=== PATIENT | male | born 1980 | race Caucasian/White ===

== ENCOUNTER 2022-07-06 14:43 | Emergency (ER) | payer OTHER, SELFPAY ==
[2022-07-06 14:58] VITALS: BP 115/77; PULSE 67; RESP 18; TEMP 36.8; O2SAT 99
--- NOTE | 2022-07-06 15:07 | ED.EAR ---
HPI - Ear Problem General Chief complaint: Ear Stated complaint: muffled hearing in both ears Time Seen by Provider: 07/06/22 15:08 Source: patient, RN notes reviewed and old records reviewed History of Present Illness HPI Narrative: 42-year-old male who presents to [facility] with complaints of muffled hearing in bilateral ears for one month duration, Patient reports that he has excessive wax in his ears and he has to have ears cleaned out every so often due to his wax build up. Patient denies any pain to ears MD Complaint: decreased hearing and other (excessive wax) Location: bilateral Discharge from ear: Reports no Treatment prior to arrival: none Related Data Home Medications Medication Instructions Recorded Confirmed bupropion HCl 150 mg 24 hr tablet, 150 mg PO DAILY 07/06/22 07/06/22 extended release omeprazole 20 mg capsule,delayed 20 mg PO DAILY 07/06/22 07/06/22 release Allergies Allergy/AdvReac Type Severity Reaction Status Date / Time No Known Allergies Allergy Verified 07/06/22 15:02 Review of Systems Review of Systems: CONSTITUTIONAL: Denies fever, chills, or sweats. EYES: Denies visual changes, redness, or discharge. ENT: Denies rhinorrhea, congestion, sore throat, positive for bilateral decrease in hearing CARDIOVASCULAR: Denies chest pain, palpitations, or edema. RESPIRATORY: Denies cough or dyspnea. GASTROINTESTINAL: Denies abdominal pain, nausea, vomiting, or diarrhea. GENITOURINARY: Denies dysuria or hematuria. SKIN: Denies rash or itching. MUSCULOSKELETAL: Denies back pain, joint pain, or myalgia. NEUROLOGIC: Denies headache, numbness, or weakness. PSYCHIATRIC: Positive for history of anxiety or depression.ADD All systems reviewed & are unremarkable except as noted in HPI and below [facility] Past Medical History Medical History (Updated 07/08/22 @ 22:05 by Susan May NP) ADD (attention deficit disorder) Excessive ear wax GERD (gastroesophageal reflux disease) Surgical History Surgical History (Updated 07/08/22 @ 21:51 by Susan May NP) History of repair of hiatal hernia [place] teeth extracted Social History Social History (Updated 07/08/22 @ 21:52 by Susan May NP) Smoking status: Never smoker Alcohol intake: current Alcohol use details: social Substance use type: does not use Living arrangements: with family Gender identity (if verbalized by the patient): Male Comments At time of signature, agree with nursing past medical, surgical, social and family history. There is no relevant family history pertinent to the presenting complaint Exam Narrative: GENERAL: Well-appearing, well-nourished, and in no acute distress. HEAD: Normocephalic, atraumatic. EYES: PERRLA and EOMI. ENT: Nares clear, no rhinorrhea or epistaxis. Mucous membranes moist.TM's completely occluded by wax after removal TM's normal with god light reflex, no canal irritation, throat pink with no redness or swelling NECK: Supple. no lymphadenopathy CHEST: Clear to auscultation. No respiratory distress.SAO2 99% on room air HEART: Regular rate and rhythm. No murmur heard. Normal peripheral pulses. ABDOMEN: Soft, nontender, nondistended, normal active bowel sounds. EXTREMITIES: Normal range of motion. No edema. SKIN: Warm, dry, no rash. NEURO: No focal deficits. Alert and oriented x3. Course Course Level of Care: Express Care Visit Vital Signs Vital signs: Vital Signs Temperature 36.8 C 07/06/22 14:58 Pulse Rate 67 07/06/22 14:58 Respiratory Rate 18 07/06/22 14:58 Blood Pressure 115/77 07/06/22 14:58 Pulse Oximetry 99 07/06/22 14:58 Oxygen Delivery Room Air 07/06/22 14:58 Temperature 36.8 C 07/06/22 14:58 Pulse Rate 67 07/06/22 14:58 Respiratory Rate 18 07/06/22 14:58 Blood Pressure 115/77 07/06/22 14:58 Pulse Oximetry 99 07/06/22 14:58 Oxygen Delivery Room Air 07/06/22 14:58 Procedures Ear Wax Removal Both Ears:
== END 2022-07-06 15:56 | disposition home or self-care (01) ==
PROVIDERS: Emergency Provider Registered Nurse
DX: H61.23 Impacted cerumen, bilateral (principal); K21.9 Gastro-esophageal reflux disease without esophagitis
CPT/HCPCS: 69210; 99202; A9270; G0463

== ENCOUNTER 2023-09-17 18:40 | Emergency (ER) | payer OTHER, SELFPAY ==
[2023-09-17 18:47] VITALS: BP 137/82; PULSE 91; RESP 18; TEMP 36.5; O2SAT 99
--- NOTE | 2023-09-17 18:49 | ED.GENADULT ---
HPI - General Adult General Chief complaint: Skin/Abscess/Foreign Body Stated complaint: Rash Lt Thigh Source: patient Mode of arrival: ambulatory Limitations: no limitations History of Present Illness HPI narrative: 43-year-old male presenting for complaint of red rash to the left outer thigh for 1 week. Denies significant change in the appearance since he first noticed it. Denies pain or oozing from the site. Endorses mild itch for which he is applying hydrocortisone cream. He took Benadryl last night. Denies lip, tongue, or throat swelling, shortness of breath or wheezing. Denies changes to soap, detergent, lotion, or any other exposures. No one else in the house or any contacts with similar symptoms. Related Data Home Medications Medication Instructions Recorded Confirmed bupropion HCl 150 mg 24 hr tablet, 150 mg PO DAILY 07/06/22 07/06/22 extended release omeprazole 20 mg capsule,delayed 20 mg PO DAILY 07/06/22 07/06/22 release Allergies Allergy/AdvReac Type Severity Reaction Status Date / Time No Known Allergies Allergy Verified 07/06/22 15:02 Review of Systems Review of Systems: CONSTITUTIONAL: Denies body aches, fever, chills, or sweats. EYES: Denies visual changes, redness, or discharge. ENT: Denies rhinorrhea, congestion CARDIOVASCULAR: Denies chest pain, palpitations, or edema. RESPIRATORY: Denies cough or dyspnea. GASTROINTESTINAL: Denies abdominal pain, nausea, vomiting, or diarrhea. SKIN: report rash left thigh MUSCULOSKELETAL: Denies back pain, joint pain, or myalgia. NEUROLOGIC: Denies headache, numbness, tingling, or weakness. [facility] Past Medical History Medical History ADD (attention deficit disorder) Excessive ear wax GERD (gastroesophageal reflux disease) Surgical History Surgical History History of repair of hiatal hernia [place] teeth extracted Social History Social History Smoking status: Never smoker Alcohol intake: current Alcohol use details: social Substance use type: does not use Living arrangements: with family Gender identity (if verbalized by the patient): Male Comments At time of signature, I have reviewed and agree with nursing past medical, surgical, social and family history unless otherwise noted. Please see nursing chart for further information. There is no relevant family history pertinent to the presenting complaint Exam Narrative: GENERAL: Well-appearing HEAD: Normocephalic, atraumatic. EYES: conjunctivae clear, and EOMI. ENT: Mucous membranes moist. Oropharynx without edema, erythema or lesions. NECK: Supple. No lymphadenopathy CHEST: Clear to auscultation. HEART: Regular rate and rhythm. SKIN: Warm, dry. Left upper lateral thigh with scattered erythematous vesicles, largest area approx 3cm diameter surrounded with scattered vesicular lesions, including linear pattern. Nontender, no drainage, no warmth fluctuance or induration. NEURO: Alert and oriented x3. Course Course Emergency Course: Patient is aware of diagnosis, understands and agrees to treatment plan. Anticipatory guidance given. Patient agrees to follow-up as directed and is aware of reasons to seek care at the emergency department. Portions of this record may have been created with voice recognition software Level of Care: Express Care Visit Vital Signs Vital signs: Vital Signs Temperature 97.7 F 09/17/23 18:47 Pulse Rate 91 09/17/23 18:47 Respiratory Rate 18 09/17/23 18:47 Blood Pressure 137/82 09/17/23 18:47 Pulse Oximetry 99 09/17/23 18:47 Oxygen Delivery Room Air 09/17/23 18:47 Temperature 97.7 F 09/17/23 18:47 Pulse Rate 91 09/17/23 18:47 Respiratory Rate 18 09/17/23 18:47 Blood Pressure 137/82 09/17/23 18:47 Pulse Oximetry 99 09/17/23
== END 2023-09-17 19:04 | disposition home or self-care (01) ==
PROVIDERS: Emergency Provider Nurse Practitioner Family; PCP Hospitalist
DX: L30.9 Dermatitis, unspecified (principal); K21.9 Gastro-esophageal reflux disease without esophagitis
CPT/HCPCS: 99213; G0463

== ENCOUNTER 2025-06-10 08:07 | Emergency (ER) | payer OTHER, SELFPAY ==
--- NOTE | 2025-06-10 08:08 | ED.EAR ---
HPI - Ear Problem General Chief complaint: Ear Stated complaint: Ears Time Seen by Provider: 06/10/25 08:17 Source: patient, RN notes reviewed and old records reviewed Mode of arrival: ambulatory Limitations: no limitations History of Present Illness HPI Narrative: 45-year-old male presents to the [facility] with decreased hearing, concern for earwax impaction. Has a history of ear wax impactions. Noticed this morning when he woke up that he has decreased hearing on the right Denies pain. Denies discharge. States that he tried using a Q-tip to get the wax out. Related Data Home Medications ?Medication ?Instructions ?Recorded ?Confirmed ?Last Taken ?Type bupropion HCl 150 mg 24 hr tablet, 150 mg PO DAILY 07/06/22 07/06/22 Unknown History extended release omeprazole 20 mg capsule,delayed 20 mg PO DAILY 07/06/22 07/06/22 Unknown History release Allergies Allergy/AdvReac Type Severity Reaction Status Date / Time No Known Allergies Allergy Verified 06/10/25 08:18 Review of Systems Review of Systems: All systems reviewed & are unremarkable except as noted in HPI and below Constitutional: Constitutional: Reports no additional constitutional complaints ENT: Reports as per HPI Musculoskeletal: Musculoskeletal: Reports no additional musculoskeletal complaints Integumentary/Breasts: Skin/Breast: Reports system reviewed and no additional complaints, except as docu PMFSH Past Medical History Medical History Excessive ear wax GERD (gastroesophageal reflux disease) ADD (attention deficit disorder) Surgical History Surgical History History of repair of hiatal hernia [place] teeth extracted Social History Social History Smoking status: Never smoker Alcohol intake: current Alcohol use details: social Substance use type: does not use Living arrangements: with family Gender identity (if verbalized by the patient): Male Comments At the time of my signature, I reviewed and agree with the nursing past medical, surgical, social, and family history. There is no relevant family history pertinent to the patient complaint. Exam Const: General: cooperative, healthy appearing, comfortable, no acute distress, well developed, alert and well nourished Nutritional Appearance: well nourished Orientation/consciousness: patient oriented x3 Limitations: no limitations HENMT: Head: normal to inspection Ears: hearing grossly normal bilaterally, external ears normal and Abnormal EAC present cerumen impaction on the right and excessive cerumen on the left; no erythema and no EA tenderness Mouth: Yes Normal oral and palatal mucosa present, Yes lip normal, Yes tongue normal and Yes moist mucous membranes Throat: posterior oropharynx normal, uvula midline and no uvular edema Eyes: General: appearance normal, both eyes and all related structures Alignment and Position: alignment normal Neck: Neck: normal visual inspection, full ROM, no lymphadenopathy and no meningeal signs Chest: Chest palpation & inspection: normal inspection of the chest Resp: Effort & Inspection: normal respiratory effort and able to speak in complete sentences Cardio: Rate: regular rate Skin: General skin exam: normal color and no rashes or lesions noted Neuro: General: patient oriented x3, gait normal, moves all extremities and no meningeal signs Cognition (Neuro): normal cognition Speech: normal speech Gait exam (Neuro): Normal gait present Extrem: General: normal to inspection, full ROM, capillary refill normal and normal gait Psych: Appearance: grossly normal and well kempt Mental Status: mental status grossly normal Speech and movement: Normal speech and movement present and Clear speech present Affect: normal affect Attitude: cooperative Course Course Level of Care: Express Care Visit Vital Signs Vital signs: Vital Signs Temperature 97.3 F L 06/10/25 08:14 Pulse Rate 68 06/10/25 08:14 Respiratory Rate 18 06/10/25 08:14 Blood Pressure 134/69 06/10/25 08:14 Pulse Oximetry 99 06/10/25 08:14 Oxygen Delivery Room Air 06/10/25 08:14 Temperature 97.3 F L 06/10/25 08:14 Pulse Rate 68 06/10/25 08:14 Respiratory Rate 18 06/10/25 08:14 Blood Pressure 134/69 06/10/25 08:14 Pulse Oximetry 99 06/10/25 08:14 Oxygen Delivery Room Air 06/10/25 08:14 Reviewed Procedures Ear Wax Removal Both Ears: Ear Wax Removal Date: 06/10/25 Ear Wax Removal Time: 08:23 Cerumenolytic Used: other (Peroxide water) Results: Re-examined: cerumen removed completely TM Examination: TM(s) intact, normal appearance Ear Canal Exam: atraumatic Patient Tolerated Procedure: well Medical Decision Making MDM Narrative Medical decision making narrative: Patient sitting comfortably in exam room. Nontoxic, vitals stable. Patient in no acute distress Patient presents to have his ears cleaned out specifically right side Patient has earwax, used peroxide and a curette for removal. Patient appropriate for outpatient treatment and follow-up Discharge instructions reviewed with patient, as well as provided in writing per nursing staff. The instructions also include specific and strict return/GO TO THE ER as well as f/u information. All questions have been answered, and the patient deny any further questions with discharge and discharge plan. Some parts of this dictation were generated by voice recognition software and may contain typographical and/or grammatical inaccuracies. Differential Diagnosis Differential Diagnosis: Ear wax impaction, excessive earwax, otitis externa, otitis media, otitis serous, tinnitus Medical Records Medical records reviewed: Yes I reviewed the external patient's medical records. Vital Signs Vital Signs: Vital Signs Temperature 97.3 F L 06/10/25 08:14 Pulse Rate 68 06/10/25 08:14 Respiratory Rate 18 06/10/25 08:14 Blood Pressure 134/69 06/10/25 08:14 Pulse Oximetry 99 06/10/25 08:14 Oxygen Delivery Room Air 06/10/25 08:14 Temperature 97.3 F L 06/10/25 08:14 Pulse Rate 68 06/10/25 08:14 Respiratory Rate 18 06/10/25 08:14 Blood Pressure 134/69 06/10/25 08:14 Pulse Oximetry 99 06/10/25 08:14 Oxygen Delivery Room Air 06/10/25 08:14 Reviewed Lab Data Lab results reviewed: Yes I reviewed the patient's lab results. Labs: Reviewed Critical Care Time Critical Care Time Critical Care Time: No Discharge Plan Discharge Clinical Impression: Impacted cerumen of right ear, Excessive cerumen in left ear canal Patient Disposition: Home Condition: Stable Instructions: Antibiotic Form, Carbamide Peroxide (Into the ear), How to Use Ear Drops (ED) Additional Instructions: You had Cerumen (EAR wax impaction). Do not use Q-tips or put anything in the ear. This can damage the ear. Instead , use Debrox or ear wax remover. Place 5 drops in ear after a hot shower and place a warm compress over the ear for 20 minutes. alternate doing this every 3-4 days. It will break up the wax gently. Do not use too much pressure. Once you have all of the cerumen out of your ears, you may do preventative treatment to prevent this from happening again. Use 5 drops once weekly after a hot shower. Patient Language: Greenlandic Prescriptions: No Action bupropion HCl 150 mg tablet extended release 24 hr 150 mg PO DAILY omeprazole [Prilosec] 20 mg Capsule,Delayed Release(Dr/Ec) 20 mg PO DAILY Follow-up/Referrals: Vonda,Dank Mack Jr., MD [Primary Care Provider] - [facility] Week [facility] Time of Disposition: 08:28
--- OUTSIDE RECORDS SUMMARY | 2025-06-10 08:10 | XMS_ITS | Clinical Summary ---
Author Organization [facility] Address [address] [place] [id number] Care Team Providers Care Technical Advisor Name Role Phone Vonda Phillips MD, Dank Mack Primary Care Provide r Allergies No known active allergies Medications vitamin D3-folic acid 500 unit- 1 mg tablet Take by mouth daily Active omeprazole (PriLOSEC) 20 mg capsuleIndicati ons:Gastroesoph ageal reflux disease without esophagitis TAKE 1 CAPSULE(20 MG) BY MOUTH DAILY 90 capsule 3 5 Active buPROPion XL (WELLBUTRIN XL) 300 mg 24 hr tabletIndicatio ns:Profound inattention TAKE 1 TABLET(300 MG) BY MOUTH EVERY MORNING 90 tablet 3 5 Active buPROPion XL (WELLBUTRIN XL) 300 mg 24 hr tabletIndicatio ns:Profound inattention Take 1 tablet (300 mg total) by mouth every morning 90 tablet 3 4 025 Discontinued omeprazole (PriLOSEC) 20 mg capsuleIndicati ons:Gastroesoph ageal reflux disease without esophagitis Take 1 capsule (20 mg total) by mouth daily 90 capsule 3 4 025 Discontinued Active Problems Problem Noted Date Diagnosed Date Profound inattention 04/30/2022 Assessment & Plan (06/19/2022 2:46 PM CDT): Increase wellbutrin to 150 mg XL daily- ordered rtc 4 weeks Assessment & Plan (04/30/2022 10:31 PM CDT): He is interested in starting nonstimulant medication. Many symptpoms he describes fulfill criteria for an ADD/ADHD diagnosis. I discussed I do not prescribe stimulants without a formal diagnosis from a pscyhologist and offered this referral to him. He is interested in nonstimulant options first, discussed effexor vs wellbutrin. Bc of its weight neutrality and lower se profile, we agreed wellbutrin would be a better first option. SE were discussed including dizziness, nausea, dry mouth. Annual physical exam 01/27/2021 Assessment & Plan (06/04/2024 8:09 AM CDT): Reviewed labs, screenings and vaccines Assessment & Plan (01/27/2021 3:33 PM CDT): - Reviewed with the patient BMI, blood pressure, diet, exercise, and encouraged healthy lifestyle choices. - Screened for high risk behaviors, diet and exercise habits, and symptoms of depression. - check screening labs - encouraged regular exercise and weight loss Pre-diabetes 01/27/2021 Assessment & Plan (01/27/2021 3:34 PM CDT): - hx of high glucose - check A1c Hyperlipidemia 01/27/2021 Assessment & Plan (04/30/2022 10:32 PM CDT): Eating lower cholesterol diet, LDL improved significantly- encouraged to continue this Assessment & Plan (10/11/2021 10:38 AM PHOTOGRAPHER'S MODEL): Checking flp Assessment & Plan (01/27/2021 3:34 PM CDT): - elevated lipids in past - will check lipids Class 1 obesity due to exces s calories without serious comorbidity with body mass index (BMI) of 33.0 to 33.9 in adult 01/27/2021 Assessment & Plan (06/04/2024 8:09 AM CDT): Monitor weight Assessment & Plan (02/05/2023 4:25 PM CDT): withGERD Monitor weight Assessment & Plan (10/11/2021 10:39 AM PHOTOGRAPHER'S MODEL): Checking tfts Will have further diet/excercise recs once labs return. Need to r/o dm and predm Assessment & Plan (01/27/2021 3:34 PM CDT): - discussed risks associated with obesity to include heart disease, hyperlipidemia, LEYDI, Diabetes, and OA. - recommend weight loss via diet and exercise Inguinal hernia, left 06/12/2018 Family history of prostate cancer 02/18/2018 Assessment & Plan (04/30/2022 10:31 PM CDT): Advise we start screening PSA at 43 if he is interested. This was discussed today. 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 His [place] Sleepiness Scale score is 11. I have recommended proceeding with a nocturnal polysomnogram with a split night protocol if necessary and no MSLT. He will follow-up with me in 3 months. Assessment & Plan (10/11/2021 10:39 AM PHOTOGRAPHER'S MODEL): Sleep study scheduled- agree with this Assessment & Plan (01/27/2021 3:33 PM CDT): - uncontrolled - ref to sleep medicine for sleep study Immunizations Immunization Administration Dates Next Due Influenza, Quadrivalent, Erika l Culture-based MDCK, Preservative Free, Antibiotic Free, Intramuscular 08/18/2022,08/22/2019 Influenza, Quadrivalent, Spl it, Preservative Free, Intramuscular 08/13/2020,08/20/2018,09/27/2017 Influenza, Trivalent, IM (MDV) ,08/31/2014,07/21/2013,08/19 Influenza, Trivalent, Preser vative Free, Intramuscular 08/26/2016,08/15/2016,08/26/2015,08/18,08/25/2014,07/21/2013,08/19/2012 Influenza, Unspecified 07/17/2023(Deferr ed: Patient Refused),08/04/2020,08/04/2019 Pfizer SARS-CoV-2 Monovalent Vaccination (12+ Yrs) PURPLE 01/20/2021,12/31/2020 Tdap 03/15/2017,05/17/2008 Surgical History Surgery Date Site/Laterality Comments HERNIA REPAIR Left Left inguinal hernia repair WISDOM TOOTH EXTRACTION UPPER GASTROINTESTINAL ENDOSCOPY Medical History Medical History Date Comments Hiatal hernia High cholesterol Anxiety Family History Medical History Relation Name Comments Prostate cancer Father Breast cancer Mother Relation Name Status Comments Father Alive Mother Alive Social History Tobacco Use Types Packs/Day Years Used Date Smoking Tobacco: Never Smokeless Tobacco: Never Tobacco Cessation:Counseling Given: Not Answered AUDIT-C Answer Date Recorded Q1: How often do you have a drink containing alc ohol? 2-4 times a month 12/17/2024 Q2: How many drinks containi ng alcohol do you have on a typical day when you are drinking? 1 or 2 12/17/2024 Q3: How often do you have si x or more drinks on one occasion? Never 12/17/2024 PHQ-2 Answer Date Recorded PHQ-2 Total Score (If total score is 3 or more points, staff should administer the PHQ-9) 0 06/04/2024 PHQ-9 Answer Date Recorded PHQ-9 Total Score 2 06/04/2024 Personal Safety Answer Date Recorded Have you ever been in or are you currently in a harmful physical or emotional relationship or is someone making you feel afraid or unsafe? Denies 12/17/2024 Sex and Gender Information Value Date Recorded Sex Assigned at Not on file Legal Sex Male 3:53 PM CDT Gender Identity Not on file Sexual Orientation Not on file Obstetrics History Last Filed Vital Signs Vital Sign Reading Time Taken Comments Blood Pressure 132/97 12/17/2024 8:15 AM PHOTOGRAPHER'S MODEL Pulse 71 12/17/2024 8:15 AM PHOTOGRAPHER'S MODEL Temperature 36.3 C (97.4 F) 12/17/2024 7:54 AM PHOTOGRAPHER'S MODEL Respiratory Rate 12 12/17/2024 8:15 AM PHOTOGRAPHER'S MODEL Oxygen Saturation 97% 12/17/2024 8:15 AM PHOTOGRAPHER'S MODEL Inhaled Oxygen Concentration - - Weight 90.7 kg (200 lb) 12/17/2024 6:39 AM PHOTOGRAPHER'S MODEL Height 167.6 cm (5' 6) 06/04/2024 7:44 AM CDT Body Mass Index 32.28 06/04/2024 7:44 AM CDT Plan of Treatment Health Maintenance Due Date Last Done Comments Hepatitis C Screening 1980 Hepatitis B Screening 1996 Covid-19 Vaccine ( season) 2024 08/18/2022, 09/26/2021, 01/20/2021, Additional history exists Depression Screening 06/04/2025 06/04/2024, 07/17/2023, 02/05/2023, Additional history exists Regular Well Visit/Exam 18-64 06/04/2025 06/04/2024, 02/05/2023, 01/27/2021 Influenza Vaccine (#1) 2025 , 09/06/2021, 08/13/2020, Additional history exists Prostate Cancer Screening-PSA 07/10/2026 07/10/2024 DTaP/Tdap/Td Vaccine (3 - Td or Tdap) 03/15/2027 03/15/2017, 05/17/2008 Colon Cancer Screening-Colonoscopy 12/17/2034 12/17/2024 Pneumococcal vaccine <65 Aged Out No longer eligible based on patient's age to complete this topic Procedures Procedure Name Priority Date/Time Associated Diagnosis Comments COLONOSCOPY 12/17/2024 7:12 AM PHOTOGRAPHER'S MODEL PSA SCREEN Routine 07/10/2024 8:21 AM CDT Family history of prostate cancer from Last 3 Months or Most Recently Relevant to Health Maintenance Results * Colonoscopy (12/17/2024 7:12 AM PHOTOGRAPHER'S MODEL) Anatomical Region Laterality Modality Other Narrative Procedure Note Iván Huang MD - 12/17/2024 7:12 AM CST [facility] GI ENDOSCOPY Patient Name: Timothy Florence Procedure Date: 12/17/2024 7:12 AM Date of : 1980 Admit Type: Outpatient Age: 44 Gender: Male Attending MD: Iván Santana MD Room: [facility] ENDOSCOPY ROOM 06 Note Status: Finalized Procedure: Colonoscopy Indications: Screening for colorectal malignant neoplasm Referring MD: Providers: Iván Huang MD Medicines: See the Anesthesia note for documentation of the administered medications Complications: No immediate complications. Estimated Blood Loss: Estimated blood loss: none. Procedure: The benefits, risks and alternatives of theprocedure and sedation were discussed and informed consentwas obtained. All questions were answered. Please referto the signed informed consent document in the medical record. The scope was passed under direct vision.The PCF-GC170A colonoscope was introduced through theanus and advanced to the terminal ileum, with identification of the appendiceal orifice and IC valve. The colonoscopy was performed without difficulty. The patient tolerated the procedurewell. The quality of the bowel preparation was good. Findings: The perianal and digital rectal examinations were normal. The terminal ileum appeared normal. The entire examined colon appeared normal on direct and retroflexion views. Impression: - The examined portion of the ileum was normal. - The entire examined colon is normal. - The entire examined colon is normal on direct and retroflexion views. - No specimens collected. Recommendation: - Repeat colonoscopy in 10 years for screening purposes. Iván Santana Iván Huang MD 12/17/2024 8:03:14 AM . Number of Addenda: 0 Note Initiated On: 12/17/2024 7:12 AM Recognized by the [place] [employer] for promoting quality in endoscopy Iván Huang MD ENDOSCOPY PROCEDURES Final Result * PSA screen (07/10/2024 8:21 AM CDT) PSA 0.69 < OR = 4.00 ng/mL [facility] Comment: The total PSA value from this assay system is standardized against the WHO standard. The test result will be approximately 20% lower when compared to the equimolar-standardized total PSA ([place]). Comparison of serial PSA results should be interpreted with this fact in mind. This test was performed using the Siemens chemiluminescent method. Values obtained from different assay methods cannot be used interchangeably. PSA levels, regardless of value, should not be interpreted as absolute evidence of the presence or absence of disease. Blood 07/10/2024 8:21 AM CDT 07/10/2024 8:22 AM CDT Narrative [facility] - 07/11/2024 9:04 AM CDT FASTING:YES FASTING: YES aDnk Ferrari Jr., MD LAB BLOOD ORDERABLES Final Result [facility] [id number] [address] [id number] from Last 3 Months or Most Recently Relevant to Health Maintenance Insurance [facility] PL[facility] Care Teams Technical Advisor Relationship Specialty Start Date End Date Dank Ferrari Jr., MD [address] [place] [id number] PCP - General Internal Medicine 02/05/23
[2025-06-10 08:14] VITALS: BP 134/69; PULSE 68; RESP 18; TEMP 36.3; O2SAT 99
[2025-06-10] MEDS: HYDROGEN PEROXIDE 3% SOLN(*SP) 473 ML BOTTLE 120 ML IRRIGATION (08:22)
== END 2025-06-10 08:30 | disposition home or self-care (01) ==
PROVIDERS: Emergency Provider Nurse Practitioner; PCP Hospitalist
DX: H61.23 Impacted cerumen, bilateral (principal); K21.9 Gastro-esophageal reflux disease without esophagitis
CPT/HCPCS: 69210; 99212; G0463

== ENCOUNTER 2025-09-09 13:44 | Outpatient (CLI) | payer OTHER, SELFPAY ==
--- NOTE | ~2025-09-09 | MR_ITS ---
EXAMINATION: MR lumbar spine wo con DATE: 09/09/2025 14:17 INDICATION: Low back pain TECHNIQUE: Magnetic resonance imaging (MRI) of the lumbar spine was performed without intravenous contrast. Sequences included sagittal T2-weighted FSE, sagittal T2-weighted FS FSE, sagittal T1-weighted FSE, and axial T2-weighted FSE. COMPARISON: None FINDINGS: 6 mm retrolisthesis L5 on S1. Vertebral body heights are normal. Normal marrow signal. Disc desiccation, mild disc height loss and annular fissure with posterior disc extrusion at L5-S1. Remaining lumbar and visualized lower thoracic discs are normal. The conus medullaris terminates at L2. There is no rmal signal in the caudal spinal cord. Paravertebral soft tissues are unremarkable. The following disc levels are specifically discussed: T12-L1 through L1-L2: The disc does not extend beyond the endplate margin. There is mild bilateral facet joint osteoarthritis. There is no neural foraminal stenosis. There is no central canal stenosis. L2-L3: The disc does not extend beyond the endplate margin. There is mild left and mild to moderate right facet osteoarthritis. There is no neural foraminal stenosis. There is no central canal stenosis. L3-L4: Mild disc protrusions at the bilateral foraminal zones. There is mild bilateral facet joint osteoarthritis. There is mild bilateral neural foraminal stenosis. There is no central canal stenosis. L4-L5: Disc protrusions at the bilateral foraminal zones. There is mild bilateral facet joint osteoarthritis. There is mild to moderate bilateral neural foraminal stenosis. There is no central canal stenosis. L5-S1: Minimal disc extrusion with disc material extending 4 mm caudal to the level of the superior endplate of S1. There is moderate left and moderate right facet joint osteoarthritis. There is moderate bilateral neural foraminal stenosis. There is no central canal stenosis. IMPRESSION: 1. Mild lower lumbar spondylosis. Reviewed, dictated and finalized at location A. [facility]
== END 2025-09-09 13:45 | disposition home or self-care (01) ==
PROVIDERS: PCP Hospitalist; Visit Provider Chiropractor Rehabilitation
DX: M47.816 Spondylosis without myelopathy or radiculopathy, lumbar region (principal); M47.817 Spondylosis without myelopathy or radiculopathy, lumbosacral region; M48.061 Spinal stenosis, lumbar region without neurogenic claudication; M48.07 Spinal stenosis, lumbosacral region
CPT/HCPCS: 72148